=== PATIENT | female | born 1955 | race Caucasian/White ===

== ENCOUNTER 2016-08-12 16:54 | Observation (INO) | payer MEDICARE ==
[~2016-08-12] VITALS: Ht 152.4 cm; Wt 49.0 kg
--- NOTE | ~2016-08-12 | CN ---
PATIENT NAME:CARLEY BENTLEY MEDICAL RECORD: [id number] : 59 LOCATION:[id number] ADMIT DATE: 08/12/16 ACCOUNT: [id number] CONSULTING PHYSICIAN: TERRI ROSADO MD REFERRING PHYSICIAN: KENDALL GREEN MD DATE OF CONSULTATION: 08/13/2016 Consultation note CONSULT REQUESTING PHYSICIAN: Kendall Green MD REASON FOR CONSULTATION: Drug overdose and respiratory distress. HISTORY OF PRESENT ILLNESS: Ms. Bentley is a 61-year-old female, who has a history of uterine and ovarian carcinoma. The patient was took her narcotic overdose yesterday and the patient was lethargic and unresponsive and called the ambulance and the patient was brought into the ER. She is already on hospice. The patient has a suicidal attempt. Now, she is very weak and lethargic. The history was taken mainly by reviewing the patient's note, as well as talking to the nursing staff. PAST MEDICAL HISTORY: 1. Ovarian and uterine cancer. 2. Fibromyalgia. 3. Anxiety. 4. History of arrhythmia. 5. Chronic diarrhea. 6. Hypokalemia. 7. History of kidney stone. 8. Low backache. 9. Migraine headache. 10. UTI. PAST SURGICAL HISTORY: Left appendectomy. PAST SURGICAL HISTORY: Mainly in history of present illness. ALLERGIES: SHE IS ALLERGIC TO COMPAZINE AND CYMBALTA. PRESENT MEDICATIONS: She is on morphine, Prilosec, Glucovance, Imitrex, lorazepam, sertraline, Zofran, promethazine and hydroxyzine. PERSONAL AND SOCIAL HISTORY: The patient is a nonsmoker, nondrinker. FAMILY HISTORY: Noncontributory. PHYSICAL EXAMINATION: GENERAL: Now, the patient is lying comfortably. She opens her eyes by calling. VITAL SIGNS: The blood pressure is 108/41, pulse is 95, respirations 14, temperature 98.4, and SpO2 is 99% on 4 liters nasal cannula. HEENT: Conjunctivae are pink. Sclerae nonicteric. NECK: Supple. No JVD. CHEST: Bibasilar crackles. No wheezing. HEART: Rhythm regular, normal sound, no murmur. ABDOMEN: Soft. Bowel sounds present. No hepatosplenomegaly. CONSULT REPORT [id number] CARLEY BENTLEY RECTAL: Deferred. EXTREMITIES: No cyanosis, no clubbing, no pedal edema. SKIN: Warm and normal. CENTRAL NERVOUS SYSTEM: There is no obvious cranial nerve abnormality. The patient opens eyes by calling. LABORATORY DATA: CBC: WBC 13.5, hemoglobin 11.8, hematocrit 37.7 and platelet count 211. Chemistry: Sodium 144, potassium 4.2, BUN is 10, creatinine 0.6 and glucose is 77. IMPRESSION: 1. Narcotic drug overdose. 2. The urine is positive for opiates and benzodiazepine. 3. Acute hypoxic respiratory failure. 4. Possible aspiration pneumonia. There was no chest x-ray available. 5. Acute mental status changes secondary to narcotic overdose. 6. Suicidal attempt. 7. Ovarian carcinoma, possible uterine carcinoma. 8. Leukocytosis. RECOMMENDATION: Continue the present supportive management, start her on Zosyn, check the chest radiograph, and follow up labs in the morning. The patient was on hospice. Dr. Green, once again thanks for involving me in the care of Ms. Bentley. TRANSINT:[id number] Voice Confirmation ID: [id number] DOCUMENT ID: [id number] TERRI ROSADO MD CC: KENDALL GREEN MD [id number] DICTATION DATE: 08/13/16 1617 TRANSFER STATION ATTENDANT: 08/13/16 1831 ADM IN [facility] [address] [place] [address]
[~2016-08-12 16:54] MED LIST: AMITRIPTYLINE H50 MG PO; GLUCOVANCE 2.5-1 TAB PO; IMITREX100 MG PO; NEURONTIN 300300 MG PO; OMEPRAZOLE40 MG PO; PRAVACHOL40 MG PO; ULTRAM50 MG PO; ZANAFLEX4 MG PO; ZESTRIL20 MG PO; ZOLOFT100 MG PO
[2016-08-12 17:35] LABS: BASOPHILS 0.2 % (0-2); EOSINOPHILS 0.7 % (0-7); HEMATOCRIT 36.1 % (36.0-48.0); HEMOGLOBIN 11.8 g/dL (12-16); IMMATURE GRANULOCYTES 0.1 % (0-5); LYMPHOCYTES 18.7 % (15-50); MCH 28.4 pg (26.0-34.0); MCHC 32.7 g/dL (31.0-37.0); MCV 86.8 fL (80.0-100.0); MEAN PLATELET VOLUME 9.8 fL (7.4-10.4); MONOCYTES 8.8 % (2-11); NEUTROPHILS 71.5 % (40-80); RBC 4.16 10x6/uL (4.00-5.40); RDW 13.1 % (11.5-14.5); WBC 12.2 10x3/uL (4.8-10.8)
[2016-08-12 17:49] LABS: ALBUMIN 2.9 g/dL (3.4-5.0); ALKALINE PHOSPHATASE 126 U/L (46-116); ALT (SGPT) 22 U/L (10-68); BILIRUBIN - TOTAL 0.34 mg/dL (0.2-1.3); CALC OSMOLALITY 287 mosm/kg (275-300); CALCIUM 8.7 mg/dL (8.5-10.1); CARBON DIOXIDE 30.5 mmol/L (21.0-32.0); CHLORIDE - SERUM 106 mmol/L (98-107); CREATININE - SERUM 0.7 mg/dL (0.6-1.3); POTASSIUM - SERUM 3.4 mmol/L (3.5-5.1); PROTEIN - SERUM 6.9 g/dL (6.4-8.2); SODIUM 145 mmol/L (136-145); UREA NITROGEN 11 mg/dL (7-18); eGFR NON AFRICAN AMERICAN > 90 mL/min (90-120)
[2016-08-12 17:50] LABS: GLUCOSE 101 mg/dL (74-106)
[2016-08-12 18:04] LABS: HCG SERUM NEGATIVE (NEGATIVE)
[2016-08-12 18:07] LABS: PLATELET COUNT 238 10x3/uL (130-400)
[2016-08-12 18:44] LABS: UDS - AMPHET NEGATIVE QUAL (NEGATIVE); UDS - BARB NEGATIVE QUAL (NEGATIVE); UDS - BENZO POSITIVE QUAL (NEGATIVE); UDS - COCAINE NEGATIVE QUAL (NEGATIVE); UDS - METH NEGATIVE QUAL (NEGATIVE); UDS - OPIATE POSITIVE QUAL (NEGATIVE); UDS - PCP NEGATIVE QUAL (NEGATIVE); UDS - THC NEGATIVE QUAL (NEGATIVE)
[2016-08-12 19:30] VITALS: BP 118/60
--- NOTE | 2016-08-12 19:30 | NUR ---
RECEIVED PATIENT FROM ER VIA BED, NO FAMILY AT THIS MOMENT. PATIENT MOVED TO ICU BED AND HOOKED TO MONITOR. PATIENT OPENED EYES AND MOVED ARMS WHEN WE MOVED HER, BUT WOULD NOT ANSWER QUESTIONS OR FOLLOW COMMANDS. PUPILS ARE 2MM, AND ARE SLUGGISH TO LIGHT. VSS, SEE ADMISSION ASSESSMENT FOR MORE DETAILS.
[2016-08-12 20:00] VITALS: BP 112/54; BP 113/50
[2016-08-12 21:00] VITALS: BP 97/56
--- NOTE | 2016-08-12 21:00 | NUR ---
PATIENT OPENS EYES SLIGHTLY TO VOICE, STILL WILL NOT FOLLOW COMMANDS. RR EVEN AND NON-LABORED. SAT IS 100% ON 4L NC.
[2016-08-12 22:00] VITALS: BP 105/53
[2016-08-12 22:15] VITALS: BP 118/60; BMI 21.1
[2016-08-12 23:00] VITALS: BP 111/57
--- NOTE | 2016-08-12 23:05 | NUR ---
REASSESSMENT COMPLETE. NO ACUTE CHANGES. RR EVEN, NON-LABORED. 14 RR PER MINUTE. PULILS 2MM AND SLUGGISH TO LIGHT. MOANS WHEN BEING MOVED BUT WILL NOT FOLLOW COMMANDS. VSS, WILL MONITOR.
[2016-08-13] VITALS (22 sets, daily range): BP systolic 99–130; BP diastolic 41–59; Ht 152.4 cm; Wt 49.0 kg
--- NOTE | 2016-08-13 01:15 | NUR ---
VSS, PATIENT AROUSES TO STIMULI BUT FALLS BACK TO SLEEP QUICKLY.
--- NOTE | 2016-08-13 03:15 | NUR ---
REASSESSMENT COMPLETE PER FLOWSHEET, SEE FOR DETAILS. VSS, RR EVEN AND NON-LABORED. PATIENT AWAKENS AND WILL OPEN EYES, MOAN, BUT FALLS BACK TO SLEEP QUICKLY. PUPILS REACTIVE TO LIGHT. WILL CONTINUE TO MONITOR.
[2016-08-13 05:11] LABS: BASOPHILS 0.1 % (0-2); EOSINOPHILS 0.7 % (0-7); HEMATOCRIT 37.7 % (36.0-48.0); HEMOGLOBIN 11.8 g/dL (12-16); IMMATURE GRANULOCYTES 0.2 % (0-5); LYMPHOCYTES 19.6 % (15-50); MCH 27.7 pg (26.0-34.0); MCHC 31.3 g/dL (31.0-37.0); MCV 88.5 fL (80.0-100.0); MEAN PLATELET VOLUME 10.1 fL (7.4-10.4); MONOCYTES 6.8 % (2-11); NEUTROPHILS 72.6 % (40-80); PLATELET COUNT 211 10x3/uL (130-400); RBC 4.26 10x6/uL (4.00-5.40); RDW 13.7 % (11.5-14.5); WBC 13.5 10x3/uL (4.8-10.8)
[2016-08-13 05:23] LABS: ALBUMIN 2.9 g/dL (3.4-5.0); ALKALINE PHOSPHATASE 135 U/L (46-116); ALT (SGPT) 23 U/L (10-68); BILIRUBIN - TOTAL 0.23 mg/dL (0.2-1.3); CALC OSMOLALITY 284 mosm/kg (275-300); CALCIUM 8.9 mg/dL (8.5-10.1); CARBON DIOXIDE 27.6 mmol/L (21.0-32.0); CHLORIDE - SERUM 108 mmol/L (98-107); CREATININE - SERUM 0.6 mg/dL (0.6-1.3); GLUCOSE 77 mg/dL (74-106); PROTEIN - SERUM 6.3 g/dL (6.4-8.2); SODIUM 144 mmol/L (136-145); UREA NITROGEN 10 mg/dL (7-18); eGFR NON AFRICAN AMERICAN > 90 mL/min (90-120)
[2016-08-13 05:26] LABS: POTASSIUM - SERUM 4.2 mmol/L (3.5-5.1)
--- NOTE | 2016-08-13 19:30 | NUR ---
Assessment complete. See flowsheet. Pt resting with O2 @ 2.5L NC and VSS. Pt awakens to verbal stimulation and lethargic; answering all questions with no confusion noted. Pupils size 4 bilaterally ERRLA. Respirations shallow and unlabored. Lung sounds present fine crackles to all [place] that clear with cough. No sputum produced. SPO2 100% FiO2 decreased to 2L NC. HR SR with S1S2 auscultated. All peripheral pulses palpable. No edema noted. Capillary refill <3 seconds. Right A/C PIV site CDI; no s/s infection or infiltration with Zosyn Abx infusing over 4hrs with NS base rate primary fluid @ 125cc/hr. Abdomen soft; sunken with BS present to all quadrants. Ruff catheter secure retrieving clear/yellow urine. Pt pulled up in bed and positioned to left side. HOB @ 10 degrees. Call light and bedside table within pt reach. Pain and further needs denied. CPOC.
--- NOTE | 2016-08-13 21:30 | NUR ---
Pt resting to left side and repositioned. VSS. Pain denied. NO s/s distress. Call light and bedside table remain within pt reach. CPOC.
--- NOTE | 2016-08-13 23:20 | NUR ---
REASSESSMENT COMPLETE. PATIENT RESTING IN BED, AWAKENS TO VOICE. ALERT AND ORIENTED. O2 @ 2L NC, SATS 100%. RR EVEN AND NON-LABORED. S1S2. PERIPHERAL PULSES PALPABLE. VSS, WILL MONITOR.
[2016-08-14] VITALS (24 sets, daily range): BP systolic 108–149; BP diastolic 47–73
--- NOTE | 2016-08-14 01:15 | NUR ---
PT RESTING WELL, VSS.
--- NOTE | 2016-08-14 03:15 | NUR ---
REASSESSMENT COMPLETE, PATIENT AWAKENS EASILY BUT LETHARGIC. A&O X4. RR SHALLOW AND NON-LABORED. S1S2. BAZZI DRAINING TO GRAVITY. BAZZI CARE DONE. PIV IN RAC INFUSING NS, NO S/S OF INFILTRATION, SITE C/D/I.
[2016-08-14 05:27] LABS: BASOPHILS 0.2 % (0-2); EOSINOPHILS 0.7 % (0-7); HEMATOCRIT 35.5 % (36.0-48.0); HEMOGLOBIN 11.3 g/dL (12-16); IMMATURE GRANULOCYTES 0.2 % (0-5); LYMPHOCYTES 9.7 % (15-50); MCH 28.4 pg (26.0-34.0); MCHC 31.8 g/dL (31.0-37.0); MCV 89.2 fL (80.0-100.0); MONOCYTES 7.8 % (2-11); NEUTROPHILS 81.4 % (40-80); PLATELET COUNT 225 10x3/uL (130-400); RBC 3.98 10x6/uL (4.00-5.40); RDW 13.7 % (11.5-14.5); WBC 12.8 10x3/uL (4.8-10.8)
--- NOTE | 2016-08-14 05:42 | NUR ---
PATIENT REPOSISTIONED FOR COMFORT, DENIES FURTHER NEED.
[2016-08-14 05:52] LABS: ALBUMIN 2.5 g/dL (3.4-5.0); ALKALINE PHOSPHATASE 122 U/L (46-116); ALT (SGPT) 25 U/L (10-68); CALC OSMOLALITY 288 mosm/kg (275-300); CALCIUM 8.8 mg/dL (8.5-10.1); CARBON DIOXIDE 26.8 mmol/L (21.0-32.0); CHLORIDE - SERUM 109 mmol/L (98-107); CREATININE - SERUM 0.7 mg/dL (0.6-1.3); GLUCOSE 89 mg/dL (74-106); POTASSIUM - SERUM 3.5 mmol/L (3.5-5.1); PRO BNP 890 pg/mL (0-125); PROTEIN - SERUM 6.3 g/dL (6.4-8.2); SODIUM 146 mmol/L (136-145); UREA NITROGEN 10 mg/dL (7-18); eGFR NON AFRICAN AMERICAN > 90 mL/min (90-120)
--- NOTE | 2016-08-14 07:45 | NUR ---
PATIENT ADMITS CURRENT SUICIDAL IDEATION. SAYS SHE "WANTS TO " AND THAT "NOTHING MAKES HER HAPPY ANYMORE." SPOKE WITH PATIENT FOR A WHILE ABOUT THIS. TRIED USING THERAPEUTIC CONVERSATION BUT PATIENT REMAINS FEELING IN LOW SPIRITS AND TEARFUL.
--- NOTE | 2016-08-14 09:32 | HP ---
PATIENT: CARLEY العراقي MEDICAL RECORD: [id number] ACCOUNT: [id number] LOCATION:[facility]08 : 59 ADMISSION DATE: 08/12/16 HISTORY AND PHYSICAL EXAMINATION HISTORY OF PRESENT ILLNESS: Ms. العراقي is a 61-year-old lady who is presently on the ventimask, that is sedated, following an intentional drug overdose. The patient evidently is on hospice for ovarian cancer and attempted to kill herself by taking all of her morphine tablets earlier this afternoon. Her called the ambulance and they came and got the patient. The patient was evaluated while still awake and conversive and states she just wanted to end it. She was serious about killing herself and did not want to live with her present medical history and diagnosis and now has had enough of the morphine ingested that she is slow to respond and awaken. PAST MEDICAL HISTORY: Significant for ovarian cancer, fibromyalgia, anxiety, arrhythmia, chronic diarrhea, gastroenteritis, hypokalemia, kidney stone, low back pain, migraine headaches, UTIs, left adenopathy history, uromalignancy. PAST SURGICAL HISTORY: Unobtainable at this time. ALLERGIES: SHE IS ALLERGIC TO COMPAZINE AND CYMBALTA. MEDICATIONS: Include morphine, Prilosec, Glucovance, Imitrex, lorazepam, sertraline, Zanaflex, Zofran, promethazine, hydroxyzine. SOCIAL HISTORY: The patient does not smoke, does not drink alcohol. PHYSICAL EXAMINATION: GENERAL: At the present time, the patient is sedated following Ativan after reversal of her morphine and she is sleeping. HEENT: Mucous membranes are moist. She does have a ventimask that is on. LUNGS: Coarse breath sounds heard bilaterally. HEART: Regular rate and rhythm, tachycardia. ABDOMEN: Soft, nontender, positive bowel sounds. No hepatosplenomegaly. No masses. EXTREMITIES: No edema. NEUROLOGIC: She is sedated. ASSESSMENT: 1. Drug overdose. 2. Respiratory distress. 3. History of uterine cancer. 4. Suicide attempt. PLAN: The patient admitted to the ICU. We will have pulmonary consultation for assistance in ICU medical management. The patient will have psych history evaluation in the morning. We will monitor appropriately airway protection and laboratory. TRANSINT:[id number] Voice Confirmation ID: [id number] DOCUMENT ID: [id number] HISTORY AND PHYSICAL [id number] CARLEY العراقي MICHAEL MD at 0932 CC: [id number] DICTATION DATE: 08/12/16 183 SHIFT BOSS: 08/13/16 1210 ADM IN [facility] [address] [id number]
--- NOTE | 2016-08-14 09:40 | NUR ---
PATIENT VERY ANXIOUS. ADMITS TO CURRENT SUICIDAL IDEATION. SAYS "IM NOT GETTING ANY BETTER. I JUST WANT TO . I HAVE NOTHING TO LIVE FOR." HELD CONVERSATION FOR A LONG WHILE.
--- NOTE | 2016-08-14 11:30 | NUR ---
REASSESSMENT COMPLETE, SEE FLOWSHEET FOR DETAILS.
--- NOTE | 2016-08-14 13:00 | NUR ---
FAMILY AT BEDSIDE. DENIES NEEDS AT THIS TIME. PATIENT REMAINS TEARFUL.
--- NOTE | 2016-08-14 15:31 | NUR ---
REASSESSMENT COMPLETE, SEE FLOWSHEET FOR DETAILS.
--- NOTE | 2016-08-14 17:40 | NUR ---
SPOKE WITH PATIENT IN DEPTH ABOUT FEARS WHEN GOING HOME.
--- NOTE | 2016-08-14 18:53 | NUR ---
CALLED APS ABOUT CONCERN FOR PATIENT. PATIENT SAID "I'M AFRAID TO GO HOME BECAUSE I'M SCARED MY WANTS TO KILL ME." INFORMATION GIVEN TO EMBER Claudio WITH APS AT ON 08/14/16 AT 1207.
--- NOTE | 2016-08-14 19:25 | NUR ---
REC'D PT RESTING IN BED ON ROOM AIR, AWAKE, ALERT, ORIENTED X 3, PT TEARFUL DURING CONVERSATION, STATES " I HURT AND MY WANTS ME GONE I WISH THE LORD WOULD JUST GO ON AN TAKE ME", EXPLAINED TO PT SHE WAS SAFE HERE IN THE HOSPITAL, RIGHT A/C PIV WITH NS @ 75CC/HR, MAEE, ADULT BRIEF INTACT, BAZZI PATENT DRAINING CLOUDY YELLOW URINE, BILAT SCD'S INTACT, PPP, PT MOVES ALL EXT'S, VSS, SR UP X 2, CALL LIGHT IN REACH.
--- NOTE | 2016-08-14 21:00 | NUR ---
PT RESTING IN BED EYES CLOSED, RESP EVEN AND UNLABORED, VSS, NO VISITORS IN AT THIS TIME.
--- NOTE | 2016-08-14 21:00 | NUR ---
NO VISITORS IN AT THIS TIME
--- NOTE | 2016-08-14 21:40 | NUR ---
PT ASSISTED OUT OF BED TO BSC, RIGHT A/C PIV RESECURED, PT ATTEMPTED TO HAVE BM, SM SMEAR OF STOOL NOTED AND BLOODY DRAINAGE FROM VAGINA NOTED, ASSISTED PT WITH PERICARE, PT BACK TO BED AND REPOSITIONED UP IN BED FOR COMFORT, PT REMAINS TEARFUL AND ANXIOUS AT TIMES, WILL MONITOR CLOSELY FOR CHANGES.
--- NOTE | 2016-08-14 23:15 | NUR ---
PT RESTING QUIETLY IN BED, VSS, REASSESSMENT COMPLETED, PT MOTIONED TOWARD WINDOW AND STATES " PEOPLE KEEP KNOCKING ON THE DOOR", EXPLAINED TO PT THERE WAS A WINDOW THERE BUT NO DOOR AND THE WINDOW COULD NOT BE OPENED, PT TEARFULLY STATES " I JUST DON'T KNOW WHAT TO DO NO ONE WILL BELIEVE ME", EMOTIONAL SUPPORT PROVIDED.
[2016-08-15] VITALS (25 sets, daily range): BP systolic 111–161; BP diastolic 51–86
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
--- NOTE | 2016-08-15 01:00 | NUR ---
PT'S STEPHANIE CALLED FOR STATUS UPDATE, UPDATE PROVIDED, STATED HE WOULD BE BACK UP LATER TODAY
--- NOTE | 2016-08-15 02:10 | NUR ---
RIGHT A/C PIV WILL NOT FLUSH TRIGGERING OCCLUSION ALARM ON PUMP, ARM EDEMATOUS AT SITE, FLUID STOPPED, 20 GAUGE RESITED X 1 ATTEMPT TO LEFT FOREARM, FLASH NOTED, NS @ 75 PLACED TO SITE AND TAPED SECURELY, PT REMAINS TEARFUL COMPLAINS OF BACK PAIN ASSISTED PT TO REPOSITION ONTO LEFT SIDE SUPPORTED WITH PILLOW, PT STATES " I HAVE A CROOKED SPINE AND IT IS HURTING SO BAD", WARM BLANKET PROVIDED TO BACK FOR COMFORT.
--- NOTE | 2016-08-15 02:42 | NUR ---
PT CRYING STATES " I JUST WANT TO SLEEP AND FORGET ABOUT EVERYTHING" RESTLESS IN BED, BP STABLE, PT APPEARS MORE ANXIOUS, 1MG ATIVAN GIVEN FOR AGITATION.
--- NOTE | 2016-08-15 03:20 | NUR ---
LAB AT FOR AM LAB DRAW
[2016-08-15 03:37] LABS: BASOPHILS 0.1 % (0-2); EOSINOPHILS 0.2 % (0-7); HEMATOCRIT 30.1 % (36.0-48.0); HEMOGLOBIN 10.1 g/dL (12-16); IMMATURE GRANULOCYTES 0.3 % (0-5); LYMPHOCYTES 12.9 % (15-50); MCH 28.4 pg (26.0-34.0); MCHC 33.6 g/dL (31.0-37.0); MEAN PLATELET VOLUME 9.4 fL (7.4-10.4); MONOCYTES 8.6 % (2-11); NEUTROPHILS 77.9 % (40-80); PLATELET COUNT 218 10x3/uL (130-400); RBC 3.56 10x6/uL (4.00-5.40); RDW 13.3 % (11.5-14.5); WBC 12.3 10x3/uL (4.8-10.8)
[2016-08-15 03:47] LABS: MCV 84.6 fL (80.0-100.0)
[2016-08-15 04:00] LABS: ALBUMIN 2.3 g/dL (3.4-5.0); ALKALINE PHOSPHATASE 108 U/L (46-116); ALT (SGPT) 26 U/L (10-68); BILIRUBIN - TOTAL 0.54 mg/dL (0.2-1.3); CALC OSMOLALITY 279 mosm/kg (275-300); CALCIUM 8.2 mg/dL (8.5-10.1); CARBON DIOXIDE 26.9 mmol/L (21.0-32.0); CHLORIDE - SERUM 105 mmol/L (98-107); CREATININE - SERUM 0.6 mg/dL (0.6-1.3); GLUCOSE 129 mg/dL (74-106); PROTEIN - SERUM 5.8 g/dL (6.4-8.2); SODIUM 141 mmol/L (136-145); UREA NITROGEN 5 mg/dL (7-18); eGFR NON AFRICAN AMERICAN > 90 mL/min (90-120)
[2016-08-15 04:01] LABS: POTASSIUM - SERUM 2.7 mmol/L (3.5-5.1)
--- NOTE | 2016-08-15 04:45 | NUR ---
PT REQUESTING TO GET OOB TO BSC, ASSISTED UP TO BSC, CALL LIGHT IN REACH, PT TEARFUL ABOUT ADULT BRIEF HAVING BLOODY DRAINAGE, STATES " I HAVE MADE A MESS", PARTIAL BATH AND LINEN CHANGE GIVEN, ADULT BRIEF CHANGED, REDDENED AREA NOTED BETWEEN GLUTEAL FOLDS, BHAVYA'S BUTT PASTE APPLIED FOR PT COMFORT, PT ASSISTED TO POSITION ONTO RIGHT SIDE SUPPORTED WITH PILLOWS, ICE WATER PROVIDED ON REQUEST, PT DENIES NAUSEA.
--- NOTE | 2016-08-15 05:20 | NUR ---
DR. GREGG NOTIFIED OF CRITICAL POTASSIUM, TELEPHONE ORDERS REC'D.
--- NOTE | 2016-08-15 06:15 | NUR ---
POTASSIUM DOSE ADMINISTERED IN APPLE JUICE, PT REPOSITIONED IN BED FOR COMFORT, CALL LIGHT IN REACH
--- NOTE | 2016-08-15 07:45 | NUR ---
PT UP IN WHEELCHAIR TO GO FOR IMAGING. PT VERY EMOTIONAL, CRIES EASILY. C/O HURTING WITH EVERY MOVEMENT.
--- NOTE | 2016-08-15 09:06 | NUR ---
PT UP WALKING WITH PHYSICAL THERAPY. HAD PT UP TO TOILET. C/O CONSTIPATION. ZACK SIMMS. PT MANUALLY REMOVED STOOL WHILE ON TOILET.
--- NOTE | 2016-08-15 09:22 | NUR ---
PT UP IN CHAIR FOR PHYSICAL THERAPY. USED CALL LIGHT LESS THAN 5 MINUTES AFTER PHYSICAL THERAPIST LEFT ROOM TO ASK TO GO BACK TO BED. EXPLAINED BEING IN CHAIR WAS PART OF HER PHYSICAL THERAPY AND THAT SHE NEEDED TO STAY UP A WHILE LONGER. STEPHANIE CALLED TO CHECK ON HER. WILL BE COMING TO NOON VISITATION. ASKED ABOUT PSYCH EVAL BEING DONE, LET HIM KNOW DOCTOR HAS NOT YET MADE ROUNDS ON HER.
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
--- NOTE | 2016-08-15 10:08 | NUR ---
NUTRITION MONITORING & EVAL PT SLEEPING IN CHAIR. NURSING REPORTS PT WITH SMALL AMT INTAKE FULL LIQUID BREAKFAST. WILL MONITOR DIET ADVANCEMENT, PT PROGRESS. RD FOLLOWING
--- NOTE | 2016-08-15 10:23 | NUR ---
PT ASKING TO GO BACK TO BED. EXPLAINED TO HER TO TRY TO STAY UP IN CHAIR LONG SHE CAN. HAS ONLY BEEN AN HOUR. PT IS TEARFUL AND CRYING OUT "YOU JUST DON'T UNDERSTAND, NOBODY UNDERSTANDS." PT DOES NOT ELABORATE ON STATEMENT. PT SHIFTED IN CHAIR TO GET MORE COMFORTABLE. NOW RESTING WITH EYES CLOSED AND MUMBLING TO HERSELF.
--- NOTE | 2016-08-15 11:10 | NUR ---
DR SHAY BY TO SEE PATIENT. ASKS THAT CASE MANAGEMENT BE CALLED TO WORK ON GETTING PATIENT PLACEMENT ONCE IS ABLE TO DISCHARGE.
--- NOTE | 2016-08-15 11:21 | NUR ---
VERENICE WITH [facility]ULT [employer] [employer] CALLED TO FOLLOW UP. GAVE HER CONTACT INFO ABOUT HOSPICE HOME CARE AND NURSE VALERIE AT HER REQUEST. SHE ASKED IF PATIENT IS ABLE TO COMMUNICATE. LET HER KNOW PT IS ALERT AND ORIENTED, BUT TEARFUL MOST TIMES. ALSO LET HER KNOW WAS PLANNING TO COME TO NOON TIME VISITATION.
--- NOTE | 2016-08-15 11:49 | NUR ---
KAREY WITH CASE MANAGEMENT NOTIFIED OF PT NEED TO POSSIBLY HAVE PLACEMENT OUTSIDE OF HOME WHEN DISCHARGES
--- NOTE | 2016-08-15 12:04 | NUR ---
PT PROVIDED WITH LUNCH TRAY. ATE A COUPLE OF BITES OF ICE CREAM. REQUESTED TO BE ASSISTED TO TOILET. PT HAS HAD ANOTHER BOWEL MOVEMENT. PT THEN ASSISTED TO BED. MONITORING RESUMED.
--- NOTE | 2016-08-15 12:22 | NUR ---
DR BLEDSOE IN TO SEE PATIENT.
--- NOTE | 2016-08-15 13:10 | NUR ---
PT ASSISTED UP TO TOILET. HAS HAD INCONTIENCE OF BOWELS. ALSO ADDITIONAL BM AT TOILET.
--- NOTE | 2016-08-15 13:26 | NUR ---
CASE MANAGEMENT IN TO SEE PATIENT. PATIENT HAS HAD ANOTHER BM, NOW LOOSE STOOL.
--- NOTE | 2016-08-15 13:47 | NUR ---
AWAITING PHARMACY TO BRING UP LEXAPRO. NOT AVAILABLE IN OUR [facility]
--- NOTE | 2016-08-15 14:06 | NUR ---
Patient Name: CARLEY BENTLEY Admission Status: ER Accout number: [id number] Admission Date: 08-12-2016 : 1955 Admission Diagnosis: Attending: ILDA Current LOS: 3 Anticipated DC Date: 08-16-2016 Planned Disposition: Home or Self Care Primary Insurance: [employer] CHOICE PPO [facility] [facility] Discharge Planning Comments: CM MET WITH PATIENT TO DISCUSS DISCHARGE PLANNING / NEEDS. PATIENT STATES SHE DOES NOT WANT TO RESUME [facility] AT HOSPITAL DISCHARGE. STATES SHE PLANS TO RETURN HOME, WILL PACK HER THINGS AND MOVE TO [place] WITH HER AUNT, DONNA BORRERO. PATIENT UNABLE TO RECALL AUNT'S PHONE NUMBER, BUT STATES SHE HAS TALKED TO HER AUNT AND SHE IS WILLING TO ALLOW PATIENT TO MOVE IN WITH HER. STATES SHE WILL SET UP HOSPICE AFTER SHE GETS TO HER AUNT'S HOUSE IN [place]. STATES HER HOME ENVIORNMENT IS SAFE. STATES THE ONLY TIME SHE IS LEFT AT HOME ALONE IS WHEN HER HAS TO RUN TO THE STORE. STATES PRIOR TO HOSPITALIZATION SHE REQUIRED ASSISTANCE [employer]Y WITH BATHING AND DRESSING. BUT LEVEL OF NEEDED ASSSITANCE JUST DEPENDING ON WHAT KIND OF DAY SHE WAS HAVING. STATES SOME DAYS SHE WAS COMPLETLEY INDEPENDENT WITH ALL ADL'S AND IADL'S. STATES HER WILL COME PICK HER UP UPON HOSPITAL DISCHARGE. DENIES ANY DISCHARGE PLANNING / NEEDS AT THIS TIME. CM WILL CONTINUE TO FOLLOW AND ASSIST NEEDED WITH DISCHARGE PLANNING / NEEDS. Is the patient Alert and Oriented? Yes * How many steps to enter\exit or inside your home? 0, ramp * PCP Jasmin * Pharmacy [facility] * Preadmission Environment Hospice * Facility Name [facility] * ADLs Partial Dependent * Partial ADLs (Assistance needed) Bathing, Dressing, Medication Management * Equipment Cane, Hospital Bed, Oxygen, Rolling Walker, Shower Chair, Wheelchair. * List name and contact numbers for known caregivers / representatives who currently or will assist patient after discharge: Spouse, Nir Bentley, * Community resources currently utilized Hospice Home * Please name any agencies selected above. [facility] * Additional services required to return to the preadmission environment? No * Can the patient safely return to the preadmission environment? Yes * Has this patient been hospitalized within the prior 30 days at any hospital? No Garment Turner: Tressa Antonio
--- NOTE | 2016-08-15 14:18 | NUR ---
PT ASSISTED AGAIN UP TO TOILET. LOOSE STOOL.
--- NOTE | 2016-08-15 17:26 | NUR ---
PT ASSISTED UP TO TOILET. DIARRHEA. GREEN IN COLOR.
--- NOTE | 2016-08-15 18:21 | NUR ---
PT ASSISTED UP TO TOILET. DIARRHEA. AT BEDSIDE.
--- NOTE | 2016-08-15 19:09 | NUR ---
PAGED ANSWERING SERVICE FOR DR SHAY. PT POTASSIUM CAME BACK AT 3.0. PT NOT ON ELECTROLYTE PROTOCOL. [facility] MELLO PRACTICE CONSULTANT.
--- NOTE | 2016-08-15 19:30 | NUR ---
Assessment completed per flowsheet, patient resting in bed with eyes open. AO x4, patient appears depressed with moments of crying. Eyes PERRLA @ 3mm with brisk response, sclera is white. S1/S2 noted with patient NSR on telemetry, rythmic and regular. Breathing is unlabored and slightly rapid on room air, Lung sounds clear all [place]. Abdomen is flat and soft, bowel sounds active x4. Ruff secured in place with concentrated yellow urine noted, BM is liquid and green/yellow in color. Full ROM all extremities with all pulses palpable, cap refill < 3 sec. 20g PIV noted L forearm, patent with fluids infusing. Patient denies pain or other needs at this time, all VSS and will continue to monitor.
--- NOTE | 2016-08-15 19:38 | NUR ---
SPOKE WITH [facility]ERSON. WANTS PT ON ELECTROLYE PROTOCOL AND TREATED.
--- NOTE | 2016-08-15 23:30 | NUR ---
Reassessment completed per flowsheet, patient resting in bed with eyes open. Patient NSR on telemetry, rythmic and regular. Breathing is even and unlabored on room air, O2 sat 96%. Patient appears calmer and more relaxed, still has moments of tearfulness over current condition and diagnosis. PRN medication given for agitation, will reassess. Denies pain or other needs at this time, all VSS and will continue to monitor.
[2016-08-16] VITALS (10 sets, daily range): BP systolic 120–161; BP diastolic 54–83
--- NOTE | 2016-08-16 01:00 | NUR ---
Patient resting in bed with eyes closed, c/o pain in lower back and pelvic area. Repositioned and provided heat pack, patient states slight relief. No further needs at this time, all VSS and will continue to monitor.
--- NOTE | 2016-08-16 01:35 | NUR ---
Patient c/o pain at IV site during K+ infusion, unwilling to complete infusion. Stopped before completion, approx 30ml remaining. Will attempt PO meds in AM for replacement.
--- NOTE | 2016-08-16 03:05 | NUR ---
Reassessment completed per flowsheet, patient in bed agitated and restless. States "hurting all over" from chronic pain due to cancer and comorbidities, repositioning and heat packs give little relief. Patient NSR on telemetry, rhythmic and regular. Breathing is rapid and effortless, O2 sat 97% on room air. No further needs at this time, all VSS and will continue to monitor.
--- NOTE | 2016-08-16 05:00 | NUR ---
Patient laying in bed restless with eyes open c/o pain in back and pelvic area. Patient also wants to have Marin removed, patient able to ambulate to bedside commode without assistance. Will ask about d/c marin in AM, no further needs at this time and will continue to monitor.
[2016-08-16 06:07] LABS: BASOPHILS 0.1 % (0-2); EOSINOPHILS 0 % (0-7); HEMATOCRIT 35.2 % (36.0-48.0); HEMOGLOBIN 12.1 g/dL (12-16); IMMATURE GRANULOCYTES 0.5 % (0-5); LYMPHOCYTES 9.2 % (15-50); MCHC 34.4 g/dL (31.0-37.0); NEUTROPHILS 83.2 % (40-80); RDW 12.9 % (11.5-14.5); WBC 12.7 10x3/uL (4.8-10.8)
[2016-08-16 06:28] LABS: APTT 43.8 SECONDS (22.8-39.4)
[2016-08-16 06:29] LABS: MCV 81.5 fL (80.0-100.0); PLATELET COUNT 302 10x3/uL (130-400); RBC 4.32 10x6/uL (4.00-5.40)
[2016-08-16 06:31] LABS: INR 2.26 (0.85-1.17)
[2016-08-16 06:46] LABS: ALBUMIN 2.4 g/dL (3.4-5.0); ALKALINE PHOSPHATASE 112 U/L (46-116); ALT (SGPT) 31 U/L (10-68); CALC OSMOLALITY 279 mosm/kg (275-300); CALCIUM 8.3 mg/dL (8.5-10.1); CARBON DIOXIDE 25.1 mmol/L (21.0-32.0); CHLORIDE - SERUM 102 mmol/L (98-107); GLUCOSE 165 mg/dL (74-106); PROTEIN - SERUM 6.6 g/dL (6.4-8.2); SODIUM 140 mmol/L (136-145); UREA NITROGEN 4 mg/dL (7-18)
[2016-08-16 06:49] LABS: CREATININE - SERUM 0.8 mg/dL (0.6-1.3); eGFR NON AFRICAN AMERICAN 78 mL/min (90-120)
[2016-08-16 06:50] LABS: POTASSIUM - SERUM 2.1 mmol/L (3.5-5.1)
--- NOTE | 2016-08-16 06:50 | NUR ---
Electrolyte replacement initiated, 60 MeQ to be replaced per protocol. PO x1 given without difficulty, 2 more doses q2 hrs remain.
--- NOTE | 2016-08-16 07:40 | NUR ---
SHIFT ASSESSMENT COMPLETE. SEE FLOW SHEET FOR DETAILS. PT AWAKE, SOBBING, C/O NOT HAVING SLEPT BECAUSE HAD TO GET UP ALL THE TIME TO GO TO THE BATHROOM AND HAVING DIARRHEA. C/O BAZZI CATHETER BOTHERING HER AND WANTS IT OUT. ALSO CRIES ABOUT " OF 30+ YEARS DOESN'T WANT ME ANYMORE BECAUSE I'M SICK, AND HE'S TIRED OF TAKING CARE OF ME." SHE IS COMPLETELY NAKED, SAYS TOO MUCH WORK TO HAVE GOWN ON.
--- NOTE | 2016-08-16 08:40 | NUR ---
PT HAD INCONTINENCE OF BOWELS. CLEANED UP, NEW GOWN PROVIDED. CLEAN LINENS PLACED ON BED. PT BUTTOCKS BECOMING RED AND EXCORIATED. BUTT PASTE APPLIED. PT BEGGING FOR BAZZI TO BE REMOVED.
--- NOTE | 2016-08-16 09:09 | NUR ---
NO VISITORS AT THIS TIME.
--- NOTE | 2016-08-16 09:27 | NUR ---
AT BEDSIDE. ASKS IF DOCTOR HAS MADE ROUNDS YET. LET HIM KNOW HE HAS NOT. WILL PROBABLY BE AROUND LUNCH-TIME. HE WANTS TO SPEAK WITH DR SHAY WHEN HE COMES.
--- NOTE | 2016-08-16 10:09 | NUR ---
PT HAS HAD ANOTHER EPISODE OF DIARRHEA. PT CLEANED UP, NEW GOWN PROVIDED. BUTT PASTE APPLIED.
[2016-08-16] MEDS ORDERED: LEXAPRO10 MG PO (11:22)
[2016-08-16] MEDS ORDERED: QUESTRAN LIG1 PACKET PO (11:23)
[2016-08-16] MEDS ORDERED: POTASSIUM CHLO10 ME1 PO (11:24)
--- NOTE | 2016-08-16 12:13 | NUR ---
BAZZI CATHETER REMOVED, TIP INTACT. 900ML OF CLEAR, YELLOW URINE OUT
--- NOTE | 2016-08-16 12:38 | NUR ---
POTASSIUM LEVEL REDRAW ORDERED. LEVEL CAME BACK CRITICAL LOW OF 2.9, THIS IS UP FROM 2.1. PT HAS PRESCRIPTION FOR ORAL REPLACEMENT BID. DR SHAY INSTRUCTED PATIENT AND REGARDING DIET AND MEDICATION TO HELP ALEVIATE DIARRHEA TO STOP THE POTASSIUM DEPLETION. DIET PRINTOUTS BEING PROVIDED IN DISCHARGE INSTRUCTIONS.
--- NOTE | 2016-08-16 12:54 | NUR ---
DISCHARGE TEACHING PROVIDED TO PATIENT AND . SIGNED DISCHARGE PAPERWORK.
== END 2016-08-16 13:05 | disposition home or self-care (01) ==
LOC: D.ER 16:54 → OBSVTIME 17:25 → D.ICU 17:25 → D.CVICU 17:25
PROVIDERS: Family Medicine; ADMIT Family Medicine
DX: T40.2X2A Poisoning by other opioids, intentional self-harm, initial encounter (principal); J96.01 Acute respiratory failure with hypoxia; C56.9 Malignant neoplasm of unspecified ovary; C79.82 Secondary malignant neoplasm of genital organs; M79.7 Fibromyalgia; F41.9 Anxiety disorder, unspecified; K52.9 Noninfective gastroenteritis and colitis, unspecified; E11.9 Type 2 diabetes mellitus without complications; I10 Essential (primary) hypertension; F33.9 Major depressive disorder, recurrent, unspecified; F05 Delirium due to known physiological condition; K21.9 Gastro-esophageal reflux disease without esophagitis

== ENCOUNTER 2016-08-25 01:02 | Emergency (ER) | payer MEDICARE ==
[2016-08-13 12:09] VITALS: BMI 21.0
[~2016-08-25 01:02] MED LIST changes: +LEXAPRO10 MG PO; +POTASSIUM CHLO10 ME1 PO; +QUESTRAN LIG1 PACKET PO
[2016-08-25 01:34] LABS: BASOPHILS 0.2 % (0-2); EOSINOPHILS 0.5 % (0-7); HEMATOCRIT 41.2 % (36.0-48.0); HEMOGLOBIN 13.9 g/dL (12-16); IMMATURE GRANULOCYTES 0.5 % (0-5); LYMPHOCYTES 16.4 % (15-50); MCH 28.3 pg (26.0-34.0); MCHC 33.7 g/dL (31.0-37.0); MCV 83.9 fL (80.0-100.0); MEAN PLATELET VOLUME 9.9 fL (7.4-10.4); NEUTROPHILS 76.4 % (40-80); RBC 4.91 10x6/uL (4.00-5.40); RDW 13.5 % (11.5-14.5); WBC 19.3 10x3/uL (4.8-10.8)
[2016-08-25 01:39] LABS: PLATELET COUNT 431 10x3/uL (130-400)
[2016-08-25 01:46] LABS: ALBUMIN 3.1 g/dL (3.4-5.0); ANION GAP 10.4 mmol/L (8-16); BILIRUBIN - TOTAL 0.56 mg/dL (0.2-1.3); POTASSIUM - SERUM 4.4 mmol/L (3.5-5.1); PROTEIN - SERUM 8.4 g/dL (6.4-8.2)
[2016-08-25 03:25] LABS: UDS - AMPHET NEGATIVE QUAL (NEGATIVE); UDS - BARB NEGATIVE QUAL (NEGATIVE); UDS - BENZO POSITIVE QUAL (NEGATIVE); UDS - COCAINE NEGATIVE QUAL (NEGATIVE); UDS - METH NEGATIVE QUAL (NEGATIVE); UDS - OPIATE POSITIVE QUAL (NEGATIVE); UDS - PCP NEGATIVE QUAL (NEGATIVE); UDS - THC NEGATIVE QUAL (NEGATIVE)
[2016-08-25 03:53] LABS: APPEARANCE CLEAR (CLEAR); BILIRUBIN NEGATIVE (NEGATIVE); COLOR YELLOW (YELLOW); GLUCOSE NEGATIVE (NEGATIVE); KETONE NEGATIVE (NEGATIVE); LEUKOCYTE ESTERASE NEGATIVE (NEGATIVE); NITRITE NEGATIVE (NEGATIVE); PH 5.5 (5.0-6.0); PROTEIN NEGATIVE (NEGATIVE); UROBILINOGEN NORMAL (NORMAL)
[2016-08-25] MEDS ORDERED: K-DUR20 MEQ PO (21:33)
[2016-08-25] MEDS ORDERED: MS CONTIN60 MG PO (21:34)
[2016-08-25] MEDS ORDERED: TEMAZEPAM30 MG PO (21:34)
[2016-08-25] MEDS ORDERED: OXYBUTYNIN CHLOR5 MG PO (21:34)
[2016-08-25] MEDS ORDERED: PERCOCET 10/3251 TA1 PO (21:35)
[2016-08-25] MEDS ORDERED: SENNA PLUS TA1 UDTAB PO (21:35)
[2016-08-25] MEDS ORDERED: ZOFRAN4 MG PO (21:37)
[2016-08-25] MEDS ORDERED: ATIVAN1 MG PO (21:37)
[2016-08-25] MEDS ORDERED: ZYPREXA2.5 MG PO (21:38)
[2016-08-25] MEDS ORDERED: CIPRO500 MG PO (21:38)
== END 2016-08-25 06:53 | disposition home or self-care (01) ==
LOC: D.ER 01:02
PROVIDERS: Emergency Medicine
DX: F91.8 Other conduct disorders (principal); F41.9 Anxiety disorder, unspecified; M79.7 Fibromyalgia; E11.9 Type 2 diabetes mellitus without complications

== ENCOUNTER 2016-08-25 07:20 | Observation (INO) | payer MEDICARE ==
[~2016-08-25] VITALS: Ht 154.9 cm; Wt 49.9 kg
[2016-08-25 10:21] LABS: ALBUMIN 3.2 g/dL (3.4-5.0); ANION GAP 13.1 mmol/L (8-16); BILIRUBIN - TOTAL 0.63 mg/dL (0.2-1.3); CALCIUM 10.3 mg/dL (8.5-10.1); CARBON DIOXIDE 25.3 mmol/L (21.0-32.0); POTASSIUM - SERUM 4.4 mmol/L (3.5-5.1); PROTEIN - SERUM 8.5 g/dL (6.4-8.2)
--- NOTE | 2016-08-25 13:35 | NUR ---
ENTERED PATIENT'S ROOM, PATIENT STATED "GET OUT! I DO NOT LIKE WHITE PEOPLE. NO WHITE PEOPLE ALLOWED IN MY ROOM. EXCEPT , HE IS THE ONLY ONE." I STATED "MA'AM, YOU ARE IN THE HOSPITAL. YOU ARE MY PATIENT. SO I AM GOING TO TAKE CARE OF YOU." PATIENT STATED YELLING "MARK, COME GET THIS WHITE PERSON OUT OF MY ROOM!" PATIENT GRABBED FOR HER IV. I STATED "PLEASE DO NOT PULL OUT YOUR IV." PATIENT STATED "I WILL. AND I CAN PUT IT BACK IN. I KNOW HOW TO START AN IV." TAPED DOWN PATIENT'S IV BETTER. BROUGHT PATIENT SOME JUICE PER HER REQUEST. PATIENT DRANK THEM. BED IN LOWEST POSITION, CALL LIGHT IN REACH. BED RAILS UP X'S 2.
--- NOTE | 2016-08-25 16:39 | NUR ---
Patient Name: CARLEY العراقي Admission Status: ER Accout number: [id number] Admission Date: 08-25-2016 : 1955 Admission Diagnosis: Attending: CM Current LOS: 1 Anticipated DC Date: 08-26-2016 Planned Disposition: Home with Hospice Primary Insurance: [employer] CHOICE PPO [facility] Discharge Planning Comments: CM SPOKE WITH PATIENT-SHE BEGAN YELLING AND STATED SHE DID NOT WANT TO TALK WITH ME. CM THEN CALLED SPOUSE (STEPHANIE العراقي) REGARDING D/C NEEDS AND PLANS. SPOUSE STATED HE WILL DRIVE PATIENT HOME ONCE SHE IS CALM AND DISCHARGED. SPOUSE STATED SHE BECAME REAL HOSTILE AT HOME AND THREATENED TO HARM HIM. PATIENT IS CURRENT WITH HOSPICE HOME [facility] AND WILL CONTINUE WITH THEM PER SPOUSE. PATIENT HAS A WALKER, WHEELCHAIR, BS COMMODE, SHOWER CHAIR, AND GLUCOMETER AT HOME. CM CALLED HOSPICE HOME CARE AND THEY STATED SHE IS CURRENT AND THEY HAVE HAD HER FOR A WHILE. PATIENTS NURSE WITH HOSPICE IS KADY. CM WILL CONTINUE TO FOLLOW PATIENT WITH D/C NEEDS AND PLANS. DR. MOCTEZUMA (HOSPICE HOME CARE) DR. TAO PCP PHARMACY IS [facility] STEPHANIE العراقي (SPOUSE) [phone] Music Therapist: Dulce Cedillo Is the patient Alert and Oriented? No 0 * PCP HOSPICE HOME [facility]ARE DR. MOCTEZUMA ADMITTED UNDER DR. TAO HER PCP 0 * Pharmacy HOSPICE PROVIDES 0 * Preadmission Environment Home with Family 0 * ADLs Partial Dependent 0 * Partial ADLs (Assistance needed) Ambulation Bathing Dressing Medication Management 0 * Equipment Bedside Commode Glucometer Walker Wheelchair 0 * List name and contact numbers for known caregivers / representatives who currently or will assist patient after discharge: STEPHANIE العراقي (SPOUSE) [phone] 0 * Community resources currently utilized Hospice Home 0 * Please name any agencies selected above. HOSPICE HOME CARE 0 * Additional services required to return to the preadmission environment? Yes 0 * Can the patient safely return to the preadmission environment? Yes 0 * Has this patient been hospitalized within the prior 30 days at any hospital? Yes 0 Grand Total: 0
[2016-08-25 16:47] VITALS: BP 146/92
--- NOTE | 2016-08-25 17:00 | NUR ---
PATIENT'S IV OUT AND LAYING ON THE FLOOR. PATIENT STATED "I PULLED IT OUT BECAUSE IT WAS BAD MEDICINE. YOU ALL ARE TRYING TO POISON ME!" TRIED TO TALK TO PATIENT. SHE FINALLY CALMED DOWN SOME. ORTEGA HOWE CAME IN WITH ME, SHE TALKED TO PATIENT, PATIENT CALMED DOWN. PATIENT STATED "LET ME FEEL YOU THEN I CAN TELL IF YOU ARE GOOD OR EVIL." SHE MOVED HER HANDS AROUND HER HEAD THEN PLACED HER HAND ON HER FOREHEAD. SHE STATED "OKAY. YOU ARE GOOD ENERGY. YOU CAN PUT IN THE IV. BUT IF IT IS BAD MEDICINE I WILL PULL IT BACK OUT." ORTEGA HOWE STARTED IV, 22G X'S 1 ATTEMPT TO LEFT FOREARM. PATIENT STATED "OKAY NOW I AM GOING TO PULL IT OUT." PATIENT GRABBED FOR THE IV. ORTEGA HOWE REMINDED HER THAT IT IS GOOD AND NOT BAD. PATIENT STOPPED GRABBING FOR THE IV. BED ALARM ON. CALL LIGHT IN REACH.
--- NOTE | 2016-08-25 19:00 | NUR ---
PATIENT'S IV IN THE FLOOR. PATIENT SITTING UP ON THE SIDE OF THE BED. ASSISTED PATIENT BACK IN BED. ASKED PATIENT IF SHE PULLED OUT IV. PATIENT STATED "BECAUSE IT WAS BAD MEDICINE. YOU LIED TO ME. GOD DOES NOT LIKE IT WHEN YOU LIE TO THE CHILD OF GOD." BED ALARM ON. CALL LIGHT IN REACH.
[2016-08-25 20:00] VITALS: BP 143/82
[2016-08-25 21:08] VITALS: BMI 20.8
[2016-08-25] MEDS ORDERED: K-DUR20 MEQ PO (21:33)
[2016-08-25] MEDS ORDERED: OXYBUTYNIN CHLOR5 MG PO (21:34)
[2016-08-25] MEDS ORDERED: MS CONTIN60 MG PO (21:34)
[2016-08-25] MEDS ORDERED: TEMAZEPAM30 MG PO (21:34)
[2016-08-25] MEDS ORDERED: SENNA PLUS TA1 UDTAB PO (21:35)
[2016-08-25] MEDS ORDERED: PERCOCET 10/3251 TA1 PO (21:35)
[2016-08-25] MEDS ORDERED: ZOFRAN4 MG PO (21:37)
[2016-08-25] MEDS ORDERED: ATIVAN1 MG PO (21:37)
[2016-08-25] MEDS ORDERED: CIPRO500 MG PO (21:38)
[2016-08-25] MEDS ORDERED: ZYPREXA2.5 MG PO (21:38)
[2016-08-26] VITALS: BP 148/92
--- NOTE | 2016-08-26 01:08 | NUR ---
PT PULLED OUT IV AT SHIFT CHANGE. PT REFUSES TO HAVE IV PUT BACK IN. YELLING "NO NEEDLES" AND IS VERBALLY AGGRESSIVE. PT REFUSED MEDS STATING "ALL THE MEDICINE IS POISON." PT HAVING OLFACTORY AND VISUAL HALLUCINATIONS. PT ASKED FOR SOMETHING TO HELP HER SLEEP. GAVE MELATONIN 6 MG PO PER TELEPHONE ORDER. PT STILL AWAKE AT THIS TIME. WILL CONTINUE TO MONITOR.
[2016-08-26 04:00] VITALS: BP 130/78
[2016-08-26 05:18] LABS: BASOPHILS 0.1 % (0-2); EOSINOPHILS 0.8 % (0-7); HEMATOCRIT 38.2 % (36.0-48.0); IMMATURE GRANULOCYTES 0.4 % (0-5); MCH 28.6 pg (26.0-34.0); MEAN PLATELET VOLUME 9.9 fL (7.4-10.4); MONOCYTES 6.1 % (2-11); NEUTROPHILS 71.6 % (40-80); PLATELET COUNT 431 10x3/uL (130-400); RBC 4.55 10x6/uL (4.00-5.40); RDW 13.7 % (11.5-14.5); WBC 17.9 10x3/uL (4.8-10.8)
[2016-08-26 05:51] LABS: ALBUMIN 2.9 g/dL (3.4-5.0); ANION GAP 13.6 mmol/L (8-16); BILIRUBIN - TOTAL 0.43 mg/dL (0.2-1.3); CALCIUM 9.9 mg/dL (8.5-10.1); CARBON DIOXIDE 26.6 mmol/L (21.0-32.0); POTASSIUM - SERUM 4.2 mmol/L (3.5-5.1); PROTEIN - SERUM 7.9 g/dL (6.4-8.2)
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
[2016-08-26 08:05] VITALS: BP 179/98
[2016-08-26 10:00] VITALS: BP 166/90
--- NOTE | 2016-08-26 10:09 | NUR ---
PATIENT ARRIVED TO THE UNIT FROM THE FLOOR VIA WHEELCHAIR BECAUSE SHE IS A THREAT TO HERSELF AND OTHERS. WILL DO AN ASSESSMENT.
--- NOTE | 2016-08-26 10:49 | NUR ---
MARLENE WITH HOSPICE HOME [facility] HERE TO SEE PATIENT.
--- NOTE | 2016-08-26 11:14 | NUR ---
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 EXPLAINED THAT THE PATIENT IS C/O PAIN TO LOWER ABD AND THERE IS PALPABLE HARDENED AREAS TO LOWER MID AND LEFT QUAD. NEW ORDERS RECEIVED.
[2016-08-26 12:45] VITALS: Ht 154.9 cm; Wt 49.9 kg
--- NOTE | 2016-08-26 15:17 | NUR ---
PATIENT SITTING UP IN BED WRITING ON PAGE AFTER PAGE. SOME THINGS ARE IN DOMINICAN AND OTHERS ARE IN AZERI. SOME MAKE SENSE AND OTHERS DONT. WILL MONITOR.
[2016-08-26 16:00] VITALS: BP 174/80
--- NOTE | 2016-08-26 16:03 | NUR ---
SPOKE WITH PATIENTS SPOUSE ON THE PHONE. HE IS VERY UPSET THAT THE PATIENT STILL DOES NOT WANT TO SEE HIM AND IS HAVING SUCH ILL THOUGHTS OF HIM. HE STATED THAT SINCE THERE IS NOTHING HE CAN DO RIGHT NOW, HE WAS GOING TO SEE HIS MOM IN [facility], BUT WOULD BE ONLY A PHONE CALL AND 4 HOURS AWAY IF WE WERE TO NEED HIM OR IF SHE WERE TO DECIDE SHE WANTED TO SEE HIM. HE STATED IT DID NOT MATTER WHAT TIME DAY OR NIGHT IT WAS, TO JUST CALL AND HE WOULD GET HERE SOON POSSIBLE. EXPLAINED THAT WE WOULD CALL HIM WITH ANY CHANGES OR IF SHE WERE TO COME TO AND START ASKING FOR HIM. HE IS THANKFUL FOR THIS.
--- NOTE | 2016-08-26 16:41 | NUR ---
PATIENT VERY ANGRY. TRYING TO LEAVE. NOT COOPERATING WITH STAFF. HALDOL GIVEN PER PRN ORDERS.
--- NOTE | 2016-08-26 16:46 | NUR ---
PATIENT BACK IN BED. STILL TALKING ABOUT "KILLING THE BITCH:. WANTS THEM TO "ROT IN HELL". DEMANDING THAT HER SON GET IN THERE BEFORE HIS "LOOSES THE LIGHT OF GOD". SHALINI BRAR AT BEDSIDE UNTIL THE HALDOL KICKS IN.
--- NOTE | 2016-08-26 17:32 | NUR ---
PATIENT IS HAVING BLOOD CLOTS IN HER URINE.
--- NOTE | 2016-08-26 18:34 | NUR ---
CALL PLACED TO LORI, NURSE ON THE FLOOR THAT WAS TAKING CARE OF THE PATIENT WHEN SHE WAS TRANSFERRED INTO THE UNIT. REQUESTED THAT SHE PUT A NOTE IN THE COMPUTER ABOUT WHAT WAS GOING ON WITH THE PATIENT THAT CAUSED THE TO NEED TO TRANSFER HER TO THE ICU. SHE STATED THAT SHE WOULD. LAST NOTE IN SYSTEM WAS FROM 10708/26/16 PRIOR TO THIS NURSES ENTRIES.
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
--- NOTE | 2016-08-26 21:00 | NUR ---
PT RESTING COMFORTABLE, NO S&S OF ACUTE DISTRESS NOTED. BED LOW AND LOCKED, BED ALARM ON, CALL LIGHT IN REACH. WILL CONTINUE TO MONITOR.
--- NOTE | 2016-08-26 22:39 | NUR ---
TALKED TO PT OVER PHONE PER PT REQUEST. NOTIFIED HIM OF PT WANTING TO TALK TO HIM AND THAT SHE WANTS TO GO HOME. STATES HE HAS VIDEOS OF HER DURING EPISODES OF "CHANGE OF PERSONALITY". ASKED ABOUT HOME MEDS AND HE STATED THAT SHE TOOK ALL OF HER MEDS (LISTED ON HOMES MEDS ALREADY PER ) APPROXIMATED 12 HOURS BEFORE BEING ADMITTED. STATES THAT HE DOES NOT KNOW WHAT TO DO WITH HER BECAUSE SHE IS A DANGER TO HERSELF AND TO HIM. STATED HE WOULD BE IN FOR VISITATION IN THE MORNING.
--- NOTE | 2016-08-26 23:00 | NUR ---
PT KRISTINE IN ROOM, ANSWERS QUESTIONS APPROPRIATELY, NOTIFIED HER THAT HER WOULD BE COMING IN THE MORNING. ASKED FOR JELLO AND WATER, THIS WAS PROVIDED. NO S&S OF ACUTE DISTRESS NOTED, BED LOW AND LOCKED, CALL LIGHT IN REACH, ALARM ON. WILL CONTINUE POC AND MONITOR.
--- NOTE | 2016-08-27 01:00 | NUR ---
NO S&S OF ACUTE DISTRESS NOTED. TALKED WITH PT ABOUT MOVIES AND FAVORITE THINGS SHE LIKES TO DO. SHE REQUESTED SOME ADELE CREAM AND MORE JELLO, THIS WAS PROVIDED. BED LOW AND LOCKED, CALL LIGHT IN REACH, ALARM ON, WILL CONTINUE TO MONITOR.
--- NOTE | 2016-08-27 03:00 | NUR ---
PT SLEEPING, NO S&S OF ACUTE DISTRESS NOTED. BED LOW AND LOCKED, CALL LIGHT IN REACH, BED ALARM ON. WILL CONTINUE TO MONITOR.
--- NOTE | 2016-08-27 05:00 | NUR ---
PT SITTING UP IN BED WATCHING TV. NO S&S OF ACUTE DISTRESS NOTED. BED LOW AND LOCKED, CALL LIGHT IN REACH. BED ALARM ON. WILL CONTINUE TO MONITOR.
[2016-08-27 07:00] VITALS: BP 176/80; BP 176/90
--- NOTE | 2016-08-27 07:00 | NUR ---
REC'ED REPORT FROM ROLFER - PT LYING SUPINE IN BED - C/O ABD PAIN AND TENDERNESS. CPOC 5748 - ASSESSMENT COMPLETE - BREAKFAST TRAY GIVEN TO PT
--- NOTE | 2016-08-27 08:30 | NUR ---
ASSISTED TO [facility] WITH MED SOFT STOOL - CHANGED LINENS - ASSISTED PT BACK TO BED WITH MINIMAL ASSISTANCE - CPOC
--- NOTE | 2016-08-27 09:00 | NUR ---
SPOUSE AT BEDSIDE - BROUGHT STREET CLOTHES TO PT - PT WITH INCREASED AGGITAION - PT THREW A CUP OF WATER ON SPOUSE - SPOUSE STEPPED OUT OF ROOM - SPOUSE SPOKE TO BELT AND LINK ASSEMBLY SUPERVISOR - ASKED TO SPEAK TO CASEMANAGER - MSA CALLED MICROFICHE DUPLICATOR TO INFORM OF SPOUSES REQUEST. 929 PT ATTEMPTED TO DRESS IN 'STREET CLOTHES' - ASSISTED PT BACK TO BED - PT RESTING 944 DR. CHILDERS AT BEDSIDE FOR ASSESSMENT - REVIEWED PLAN OF CARE -
--- NOTE | 2016-08-27 09:55 | NUR ---
X-RAY TECH COMPLETED CXR - AWAITING RESULTS
--- NOTE | 2016-08-27 09:58 | NUR ---
DR. BLEDSOE CALLED TO CLAIRIFY TREATMENT PLAN RECOMMENDATIONS. NO ANSWER. MESSAGE LEFT.
--- NOTE | 2016-08-27 10:14 | NUR ---
SPOKE WITH SHIP SURVEYOR CONCERNING NEED FOR CLAIRIFICATION. STATES HE WILL SPEAK TO CUSTODIAL STAFF AND REQUEST THAT DR. BLEDSOE CALL THE ICU WHEN HE ROUNDS.
--- NOTE | 2016-08-27 10:16 | NUR ---
RX ADMINISTERED - PT RESTING COLORING IN COLORING BOOK - REQUESTED SHARPIE TO COLOR
--- NOTE | 2016-08-27 10:28 | NUR ---
ASSISTED PT TO [facility] - MED SOFT STOOL -
--- NOTE | 2016-08-27 10:31 | NUR ---
SPOKE WITH DR. BLEDSOE. STATES HE WOULD PREFER PT GO TO INPT PSYCH FACILITY BUT THIS MAY REQUIRE RECINDING OF HOSPICE TREATMENT HE WOULD BE OK WITH PT GOING HOME ON HOSPICE AND ANTIPSYCHOTIC MEDICATION. RECOMMENDS HALDOL AND TO FOLLOW UP AT MENTAL [facility]. DR. SRIVASTAVA NOTIFIED OF DR. BLEDSOE'S RECOMMENDATIONS. WILL NOTIFY COLLECTION TECHNICIAN AND SPEAK TO .
[2016-08-27 11:00] VITALS: BP 160/74
--- NOTE | 2016-08-27 11:58 | NUR ---
GAVE LUNCH TRAY TO PT - PT GRATEFUL FOR LUIS M - LISA
--- NOTE | 2016-08-27 13:29 | NUR ---
Patient Name: CARLEY العراقي Encounter No: [id number] : 1955 Primary Insurance: [employer] CHOICE PPO [employer] Anticipated DC Date: 08-26-2016 Planned Disposition: Home with Hospice / Mental Health Facility External Planned Provider: : Referral faxed to [facility] DC PLAN: Referral has been sent to [facility]. CHRITSIANA has had multiple conversations with patient's regarding placement of patient. Discussed mental health facilities, nursing facilities, and patient returning home. Christiana has spoke to Dr. Wesley and Dr. Grace her hospice physician. With patient's multiple admissions to the hospital with manic episodes we will try to get patient placed in a mental health facility for treatment. CHRISTIANA met with patient who was alert and oriented, pleasant, and cooperative. She is agreeable to going to a psychiatric facility to get her medications adjusted to help her deal with her bipolar disorder. She stated I have been telling everyone that I need to get my medications adjusted and I know a psychiatrist is who needs to adjust my meds. CHRISTIANA has spoke to Gaurav Rhodes [facility] who will review the faxed records and call back with admission determination. Brianna Oleary RN, [facility] [phone]
--- NOTE | 2016-08-27 13:39 | NUR ---
ASSISTED PT TO [facility] - THRID BOWEL MOVEMENT - SOFT STOOLS - ASSISTED PT BACK TO BED WITH MINIMAL ASSISTNCE
[2016-08-27] MEDS ORDERED: HALDOL5 MG/ML IM (14:16)
--- NOTE | 2016-08-27 14:32 | NUR ---
Patient has been accepted to [facility]. CM notified patient's nurse and Dr. Barger of acceptance. CM left a voice mail for patients and requested he return my call. Cm will continue to follow and assist as needed with dc plans/needs.
--- NOTE | 2016-08-27 16:15 | NUR ---
CALLED REPORT TO [facility], SPOKE TO KARMA Oliva RN, CALLED [facility] - WAS INFORMED THIS TRANSPORT IS 6TH IN LINE AND WILL TAKE 5-6 HOURS TO BE AVAILABE TO P/U PT. 1640 CALLED [facility] RN TO INFORM OF APPROX TRANSPORT TIME.
--- NOTE | 2016-08-27 17:10 | NUR ---
PT UP OOB WAKING AROUND UNIT - STATED, "I WANT TO LEAVE. THE AMUBLANCE WILL KILL ME - THEY WON'T TAKE ME TO THE HOSPITAL." ATTEMPTED TO ASSURE PT THE RN WILL CALL [facility] TO NOTIFY THEM THE PT IS IN TRANSIT TO [facility]. PT ESCORTED BACK TO ROOM. ATTEPTED TO GIVE HALDOL IM FOR AGGITATION - PT REFUSED - PT ASKED FOR ULTRAM - GAVE TO PT - PT SPIT RX OUT - DID NOT GIVE ANY MEDICATIONS TO PT. NOTED ON JUN CPOC
--- NOTE | 2016-08-27 18:00 | NUR ---
PT UP OOB - AMBULATING IN UNIT - PT STATED - WANTS TO LEAVE - 'THEY ARE GOING TO KILL ME!" ASSISTED PT BACK TO ROOM X1 ASSISTANCE - ATTEMPTED TO CALMLY TALK TO PT ABOUT HER SAFETLY - PT NOT WILING TO GO BACK TO BED. PT CONTINUES TO BE AGITATED AND INCREASINGLY CONFUSED. GAVE PT ROOSEVELT HOLLEY - SEE JUN.
--- NOTE | 2016-08-27 18:35 | NUR ---
POWER WENT OUT - PT FOUND WALKING IN UNIT - INCREASED ANXIETY - EAISLY ASSISTED PT TO BED. ASSURED PT LOOSING ELECTRICAL POWER WAS UNUSUAL AND PT WAS SAFE. PT NODDED UNDERSTANDING.
--- NOTE | 2016-08-27 19:00 | NUR ---
REPORT RECIEVED, INITIAL ASSESSMENT COMPLETE, PLEASE SEE FLOW SHEETS FOR DETAILS. PT IS AWAITING TRANSPORT TO [facility], HER LUNGS ARE CLEAR AND BREATHS ARE EVEN AND UNLABORED. ABD SLIGHTLY DISTENDED AND FIRM BUT IS SECONDARY TO STAGE 4 CANCER OF UTERUS. TEMPERATURE 98.6F, HR 68 AND STEADY, PPP. ALERT AND ORIENTED X4. DENIES PAIN ATT, BED LOW AND LOCKED, CALL LIGHT IN REACH. NON SKID SOCKS ON, SIDE RAILS UP X3, BED ALARM ON. WILL CONTINUE TO MONITOR.
--- NOTE | 2016-08-27 20:30 | NUR ---
EMS PERSONEELE ARRIVED TO TRANSFER PT TO [facility]. PT SAFELY TRANSFERED TO [facility], REPORT WAS GIVEN TO EMS SUNI. ALL PERSONAL BELONGINGS SENT WITH PT. PT TRIED TO PFFERE ME A RING, TOLD HER I COULD NOT ACCEPT THIS AND SENT IT WITH HER IN A DENTURE CUP WITH A NAME COMMUNICATIONS PROFESSIONAL THE LID WITH PT NAME ON IT. ALL OTHER BELONGINGS FOUND IN BAGS (X3) SENT WITH HER.
== END 2016-08-27 20:30 | disposition short-term general hospital (02) ==
LOC: D.ER 07:20 → D.ICU 11:04 → D.MS 11:04 → OBSVTIME 11:04 → D.ICU 08-26 10:00
PROVIDERS: Emergency Medicine; ADMIT Family Medicine Adult Medicine
DX: F28 Other psychotic disorder not due to a substance or known physiological condition (principal); T40.602A Poisoning by unspecified narcotics, intentional self-harm, initial encounter; T42.4X2A Poisoning by benzodiazepines, intentional self-harm, initial encounter; R41.82 Altered mental status, unspecified; E11.40 Type 2 diabetes mellitus with diabetic neuropathy, unspecified; E11.65 Type 2 diabetes mellitus with hyperglycemia; I10 Essential (primary) hypertension; C56.9 Malignant neoplasm of unspecified ovary; C79.82 Secondary malignant neoplasm of genital organs; E78.5 Hyperlipidemia, unspecified; K21.9 Gastro-esophageal reflux disease without esophagitis; G40.909 Epilepsy, unspecified, not intractable, without status epilepticus; E87.1 Hypo-osmolality and hyponatremia; J98.11 Atelectasis